=== PATIENT | female | born 1965 | race Caucasian/White ===

== ENCOUNTER 2018-07-09 13:31 | Emergency (ER) | payer BC ==
[~2018-07-09] VITALS: Ht 154.9 cm; Wt 56.7 kg
[2018-07-09] MEDS ORDERED: GLUCAGON HYDROCHLORIDE (RDNA) 1 MG VIAL IV ONE (15:00)
[2018-07-09] MEDS ORDERED: FLUMAZENIL 0.1 MG/ML INJ 10ML MDV IV ONE (15:08)
[2018-07-09] MEDS ORDERED: SODIUM CHLORIDE LOCK 10 ML ONE (15:09)
[2018-07-09] MEDS ORDERED: diphenhdrAMINE 50mg/ml (500mg/10ml VIAL) ONE (15:09)
[2018-07-09] MEDS: MIDAZOLAM HCL 5 MG/ML-1ML VIAL ONE ×2 (15:27→15:31)
[2018-07-09] MEDS: fentaNYL CITRATE 100 MCG/2 ML VL ONE ×2 (15:27→15:31)
[2018-07-09 18:24] VITALS: BP 111/84
== END 2018-07-09 18:27 | disposition home or self-care (01) ==
LOC: ER 13:31
DX: T18.128A Food in esophagus causing other injury, initial encounter (principal); E78.5 Hyperlipidemia, unspecified; F17.210 Nicotine dependence, cigarettes, uncomplicated; Z90.710 Acquired absence of both cervix and uterus; Z88.8 Allergy status to other drugs, medicaments and biological substances; X58.XXXA Exposure to other specified factors, initial encounter; Y93.89 Activity, other specified; Y92.89 Other specified places as the place of occurrence of the external cause; Y99.8 Other external cause status
CPT/HCPCS: 43235; 70490; 82962; 99285; A6257; J2250; J3010; J7030; J1200